=== PATIENT | male | born 1960 | race African-American/Black ===

== ENCOUNTER 2018-01-02 02:02 | Inpatient (IN) | END 2018-01-07 09:45 | disposition home or self-care (01) | DRG 392 ==

== ENCOUNTER 2018-07-12 05:00 | Emergency (ER) | payer OTHER ==
[~2018-07-12] VITALS: Ht 182.9 cm; Wt 118.2 kg
[~2018-07-12 05:00] MED LIST: ATEN-51 PO; ATEN50TA PO
[2018-07-12 05:04] VITALS: Ht 182.9 cm; Wt 118.2 kg
[2018-07-12 05:30] VITALS: RESP 22
[2018-07-12] MEDS ORDERED: FAMOTIDINE 20 MG INJ IV STA (06:10)
[2018-07-12] MEDS ORDERED: SOD CHLORIDE 0.9% 1,000 ML IV STA (06:10)
[2018-07-12] MEDS ORDERED: ONDANSETRON 4 MG INJ IV STA (06:10)
[2018-07-12] MEDS ORDERED: morphine 4 MG/ML VIAL IV STA ×2 (06:10→07:14)
[2018-07-12 06:44] VITALS: BP 148/86; PULSE 75
--- NOTE | 2018-07-12 06:49 | ERD ---
ER Documentation Chief Complaint Chief Complaint abdominal pain/diarrhea x 1 day, dc'd from [facility] yesterday HPI This is a 57-year-old male with a history of hypertension and diabetes who presents to the emergency room for evaluation of abdominal pain, generalized weakness, and diarrhea which he describes as nonbloody for the past 1 day. The patient states that he was discharged from [facility] yesterday. He s tates that he did leave AGAINST MEDICAL ADVICE because he had to take care of his mother. He localized the pain to the midportion of his abdomen and describes as sharp pain with mild radiation to the back. He denies any chest pain or shortness of breath associated with this. He denies any relieving factors and came to the ER for evaluation ROS All systems reviewed and are negative except as per history of present illness. Medications Home Meds Active Scripts Hydrocodone/Acetaminophen ([place] 5-325 Tablet) 1 Each Tablet, 1 TAB PO Q6H PRN for PAIN, #7 TAB Prov:FATUMA PHAN DO 07/12/18 Ranitidine Hcl* (Zantac*) 150 Mg Tablet, 150 MG PO BID PRN for EPIGASTRIC PAIN, #30 TAB Prov:FATUMA PHAN DO 07/12/18 Reported Medications Atenolol* (Atenolol*) 25 Mg Tablet, 75 MG PO QPM 01/02/18 Atenolol* (Atenolol*) 50 Mg Tablet, 50 MG PO QAM 01/02/18 Allergies Allergies: Coded Allergies: No Known Drug Allergies (Verified Allergy, Unknown, 07/06/15) PMhx/Soc History of Surgery: Yes (LEFT ANKLE SX, LEFT KNEE SX) Anesthesia Reaction: No Hx Neurological Disorder: Yes (NEUROPATHY) Hx Respiratory Disorders: No Hx Cardiac Disorders: Yes (HTN) Hx Psychiatric Problems: No Hx Miscellaneous Medical Probl: No Hx Alcohol Use: No Hx Substance Use: No Hx Tobacco Use: No Smoking Status: Never smoker Physical Exam Vitals Vital Signs Date Temp Pulse Resp B/P (MAP) Pulse Ox O2 O2 Flow FiO2 Time Delivery Rate 07/12/18 98.2 75 148/86 97 Room Air 06:44 (106) 07/12/18 99 22 154/83 97 Room Air 05:30 (106) 07/12/18 98.1 98 18 172/82 100 05:04 (112) Physical Exam INITIAL VITAL SIGNS: Reviewed by me GENERAL: The patient is well developed and appropriate for usual state of health in no apparent distress HEENT: Pupils equal, round, and reactive to light. EOMI. There is no scleral icterus. NECK: C-spine is soft and supple, there is no meningismus. There is no cervical lymphadenopathy. LUNGS: Clear to auscultation bilaterally. There are no rales, wheezes or rhonchi. HEART: Regular rate and rhythm, no murmurs, clicks, rubs or gallops. ABDOMEN: Epigastric tenderness to palpation, negative Navarro sign, otherwise soft, non-tender, non-distended. There are bowel sounds in all four quadrants. No rebound or guarding. EXTREMITIES: There is no peripheral cyanosis or edema. No focal swelling or erythema. NEUROLOGICAL: The patient moves all four extremities with 5/5 strength. Cranial nerves II - XII are intact. Normal gait. Alert and oriented SKIN: There is no apparent rash or petechiae. HEME/LYMPHATIC: There is no evidence of excessive bruising or lymphedema. PSYCHIATRIC: The patient does not appear anxious or depressed. Result Diagram: 07/12/18 0543 07/12/18 0543 Results 24 hrs Laboratory Tests Test 07/12/18 05:43 07/12/18 05:51 White Blood Count 12.5 10^3/ul Red Blood Count 4.73 10^6/ul Hemoglobin 14.6 g/dl Hematocrit 44.6 % Mean Corpuscular Volume 94.3 fl Mean Corpuscular Hemoglobin 30.9 pg Mean Corpuscular Hemoglobin Concent 32.7 g/dl Red Cell Distribution Width 13.0 % Platelet Count 249 10^3/UL Mean Platelet Volume 9.9 fl Immature Granulocytes % 0.400 % Neutrophils % 74.7 % Lymphocytes % 14.1 % Monocytes % 9.5 % Eosinophils % 0.2 % Basophils % 1.1 % Nucleated Red Blood Cells % 0.0 /100WBC Immature Granulocytes # 0.050 10^3/ul Neutrophils # 9.3 10^3/ul Lymphocytes # 1.8 10^3/ul Monocytes # 1.2 10^3/ul Eosinophils # 0.0 10^3/ul Basophils # 0.1 10^3/ul Nucleated Red Blood Cells # 0.0 10^3/ul Sodium Level 143 mmol/L Potassium Level 3.5 mmol/L Chloride Level 111 mmol/L Carbon Dioxide Level 25 mmol/L Anion Gap 7 Blood Urea Nitrogen 11 mg/dl Creatinine 0.94 mg/dl Est Glomerular Filtrat Rate mL/min > 60 mL/min Glucose Level 102 mg/dl Calcium Level 10.1 mg/dl Total Bilirubin 0.9 mg/dl Direct Bilirubin 0.00 mg/dl Indirect Bilirubin 0.9 mg/dl Aspartate Amino Transf (AST/SGOT) 29 IU/L Alanine Aminotransferase (ALT/SGPT) 20 IU/L Alkaline Phosphatase 70 IU/L Troponin I < 0.012 ng/ml Total Protein 7.5 g/dl Albumin 4.3 g/dl Globulin 3.20 g/dl Albumin/Globulin Ratio 1.34 Lipase 253 U/L Urine Color YELLOW Urine Clarity CLEAR Urine pH 6.0 Urine Specific [place] 1.030 Urine Ketones NEGATIVE mg/dL Urine Nitrite NEGATIVE mg/dL Urine Bilirubin NEGATIVE mg/dL Urine Urobilinogen NEGATIVE mg/dL Urine Leukocyte Esterase NEGATIVE Mario/ul Urine Hemoglobin NEGATIVE mg/dL Urine Glucose NEGATIVE mg/dL Urine Total Protein NEGATIVE mg/dl Current Medications Medications Dose Sig/Jaison Start Time Status Last (Trade) Ordered Route PRN Stop Time Admin Dose Reason Admin Sodium 1,000 ml @ Q1H STAT 07/12/18 DC 07/12/18 Chloride 1,000 mls/hr IV 06:10 06:26 07/12/18 07:09 Morphine 4 mg ONCE STAT 07/12/18 DC 07/12/18 Sulfate IV 06:10 06:25 (morphine) 07/12/18 06:12 Ondansetron 4 mg ONCE STAT 07/12/18 DC 07/12/18 HCl (Zofran IV 06:10 06:25 Inj) 07/12/18 06:12 Famotidine 20 mg ONCE STAT 07/12/18 DC 07/12/18 (Pepcid Iv) IV 06:10 06:25 07/12/18 06:12 Morphine 4 mg ONCE STAT 07/12/18 DC 07/12/18 Sulfate IV 07:14 07:35 (morphine) 07/12/18 07:15 Procedures/MDM This 57year-old male presents the ER for evaluation of abdominal pain. On my examination the patient had mild epigastric tenderness to palpation. He did state that his white blood cell count was elevated earlier this week at [facility]. On my exam the patient had mild epigastric tenderness to palpation however no significant rebound or guarding, no distention. Patient's lab work does demonstrate white blood cell count of 12.5. The patient was given IV fluids, Zofran and morphine. And on my reevaluation he states he is feeling much better. This patient could have a component of gastritis. I advised him he will need to follow-up as an outpatient for an endoscopy given his nonfocal examination and normal lab findings. The patient has no elevation in lipase. I doubt pancreatitis, and troponin is negative. He has no chest pain at this time and will be discharged home with a prescription for Jewett and Pepcid. Differ ential diagnoses entertained was broad with potential high acuity. Patient has been evaluated for appendicitis, cholecystitis, and other high risk medical and surgical causes of abdominal pain. Ultimately the patient's evaluation is nondiagnostic. Based on the patient's lack of risk factors, as well as the patient's clinical, laboratory, and imaging data, the patient appears to be low risk for these high risk causes of abdominal pain. Departure Diagnosis: Primary Impression: Abdominal pain Additional Impression: Essential (primary) hypertension Condition: FATUMA Rodriguez DO July 12, 2018 06:49
[2018-07-12] MEDS ORDERED: HYDR-4011 PO (08:18)
[2018-07-12] MEDS ORDERED: RANI150T35 PO (08:18)
== END 2018-07-12 09:11 | disposition home or self-care (01) ==
LOC: E/R 05:00
DX: R10.13 Epigastric pain (principal); I10 Essential (primary) hypertension; E11.9 Type 2 diabetes mellitus without complications
CPT/HCPCS: 36415; 80053; 81003; 83690; 84484; 85025; 96374; 96375; 96376; J2270; J2405; J7030; Z7502; Z7610

== ENCOUNTER 2018-07-19 00:33 | Inpatient (IN) | payer OTHER ==
[~2018-07-19] VITALS: Ht 182.9 cm; Wt 118.0 kg
[~2018-07-19 00:33] MED LIST changes: +HYDR-4011 PO; +RANI150T35 PO
[2018-07-19 00:39] VITALS: Ht 182.9 cm; Wt 118.0 kg
--- NOTE | 2018-07-19 04:02 | ERD ---
ER Documentation Chief Complaint Chief Complaint L cheek swelling, suspected insect bite ROS All systems reviewed and are negative except as per history of present illness. Medications Home Meds Active Scripts Hydrocodone/Acetaminophen ([place] 5-325 Tablet) 1 Each Tablet, 1 TAB PO Q6H PRN for PAIN, #7 TAB Prov:FATUMA PHAN DO 07/12/18 Ranitidine Hcl* (Zantac*) 150 Mg Tablet, 150 MG PO BID PRN for EPIGASTRIC PAIN, #30 TAB Prov:FATUMA PHAN DO 07/12/18 Reported Medications Atenolol* (Atenolol*) 25 Mg Tablet, 75 MG PO QPM 01/02/18 Atenolol* (Atenolol*) 50 Mg Tablet, 50 MG PO QAM 01/02/18 Allergies Allergies: Coded Allergies: No Known Drug Allergies (Verified Allergy, Unknown, 07/06/15) PMhx/Soc History of Surgery: Yes (LEFT ANKLE SX, LEFT KNEE SX) Anesthesia Reaction: No Hx Neurological Disorder: Yes (NEUROPATHY) Hx Respiratory Disorders: No Hx Cardiac Disorders: Yes (HTN) Hx Psychiatric Problems: No Hx Miscellaneous Medical Probl: No Hx Alcohol Use: No Hx Substance Use: No Hx Tobacco Use: No Physical Exam Vitals Vital Signs Date Temp Pulse Resp B/P (MAP) Pulse Ox O2 O2 Flow FiO2 Time Delivery Rate 07/19/18 99.4 110 18 171/77 97 00:39 (108) Physical Exam Const: No acute distress Head: Atraumatic Eyes: Normal Conjunctiva ENT: Normal External Ears, Nose and Mouth. Neck: Full range of motion. No meningismus. Resp: Clear to auscultation bilaterally Cardio: Regular rate and rhythm, no murmurs Abd: Soft, non tender, non distended. Normal bowel sounds Skin: No petechiae or rashes Back: No midline or flank tenderness Ext: No cyanosis, or edema Neur: Awake and alert Psych: Normal Mood and Affect Result Diagram: 07/19/1842007/19/18420 Results 24 hrs Laboratory Tests Test 07/19/18 04:21 07/19/18 05:18 White Blood Count 25.2 10^3/ul Red Blood Count 3.80 10^6/ul Hemoglobin 11.8 g/dl Hematocrit 36.4 % Mean Corpuscular Volume 95.8 fl Mean Corpuscular Hemoglobin 31.1 pg Mean Corpuscular Hemoglobin Concent 32.4 g/dl Red Cell Distribution Width 13.2 % Platelet Count 257 10^3/UL Mean Platelet Volume 10.1 fl Immature Granulocytes % 1.000 % Neutrophils % 78.6 % Lymphocytes % 8.1 % Monocytes % 11.3 % Eosinophils % 0.4 % Basophils % 0.6 % Nucleated Red Blood Cells % 0.0 /100WBC Immature Granulocytes # 0.240 10^3/ul Neutrophils # 19.8 10^3/ul Lymphocytes # 2.0 10^3/ul Monocytes # 2.8 10^3/ul Eosinophils # 0.1 10^3/ul Basophils # 0.1 10^3/ul Nucleated Red Blood Cells # 0.0 10^3/ul Sodium Level 144 mmol/L Potassium Level 3.8 mmol/L Chloride Level 106 mmol/L Carbon Dioxide Level 31 mmol/L Anion Gap 7 Blood Urea Nitrogen 8 mg/dl Creatinine 0.75 mg/dl Est Glomerular Filtrat Rate mL/min > 60 mL/min Glucose Level 108 mg/dl Calcium Level 9.1 mg/dl Total Bilirubin 0.5 mg/dl Direct Bilirubin 0.00 mg/dl Indirect Bilirubin 0.5 mg/dl Aspartate Amino Transf (AST/SGOT) 15 IU/L Alanine Aminotransferase (ALT/SGPT) 29 IU/L Alkaline Phosphatase 67 IU/L Total Protein 6.6 g/dl Albumin 3.6 g/dl Globulin 3.00 g/dl Albumin/Globulin Ratio 1.20 Urine Color STRAW Urine Clarity CLEAR Urine pH 6.0 Urine Specific [place] 1.030 Urine Ketones NEGATIVE mg/dL Urine Nitrite NEGATIVE mg/dL Urine Bilirubin NEGATIVE mg/dL Urine Urobilinogen NEGATIVE mg/dL Urine Leukocyte Esterase NEGATIVE Mario/ul Urine Hemoglobin NEGATIVE mg/dL Urine Glucose NEGATIVE mg/dL Urine Total Protein NEGATIVE mg/dl Lactic Acid Level 0.9 mmol/L Current Medications Medications Dose Sig/Jaison Start Time Status Last (Trade) Ordered Route PRN Stop Time Admin Dose Reason Admin Morphine 6 mg ONCE ONCE 07/19/18 DC 07/19/18 Sulfate IV 04:30 04:45 (morphine) 07/19/18 04:31 Ondansetron 4 mg ONCE STAT 07/19/18 DC 07/19/18 HCl (Zofran IV 04:05 04:45 Inj) 07/19/18 04:07 Piperacillin 100 ml @ ONCE ONCE 07/19/18 DC 07/19/18 Sod/ 200 mls/hr IVPB 05:30 05:51 Tazobactam 07/19/18 05:59 Sod IV Flush 10 ml STK-MED 07/19/18 DC 07/19/18 (NS 10 ml) ONCE .ROUTE 05:12 05:28 07/19/18 05:13 Sodium 100 ml @ ud STK-MED 07/19/18 DC 07/19/18 Chloride ONCE .ROUTE 05:12 05:28 07/19/18 05:13 Iohexol 150 ml STK-MED 07/19/18 DC 07/19/18 (Omnipaque ONCE .ROUTE 05:12 05:28 300mg/ ml) 07/19/18 05:13 BOGDAN HANKINS July 19, 2018 04:02
[2018-07-19] MEDS ORDERED: ONDANSETRON 4 MG INJ IV STA ×2 (04:05→09:31)
[2018-07-19] MEDS ORDERED: morphine 10 MG INJ IV ONE (04:30)
[2018-07-19] MEDS ORDERED: IOHEXOL 300MG/ML 150 ML BTL ONE (05:12)
[2018-07-19] MEDS ORDERED: SOD CHLORIDE 0.9% 100 ML ONE (05:12)
[2018-07-19] MEDS ORDERED: PIPER-TAZO 3.375 GM IV (PMX) 100 ML IVPB ONE (05:30)
[2018-07-19] MEDS ORDERED: HYDROmorphONE 2 MG/ML SYG IM STA (06:29)
[2018-07-19] MEDS ORDERED: HYDROmorphONE 2 MG/ML SYG IV STA (06:42)
[2018-07-19] MEDS ORDERED: DEXAMETHASONE 10 MG/ML 1 ML INJ IV ONE (07:00)
[2018-07-19] MEDS ORDERED: ACETAMINOPHEN 325 MG TAB PO PRN ×2 (09:30→13:30)
[2018-07-19] MEDS ORDERED: ONDANSETRON 4 MG INJ IV PRN ×2 (09:30→13:30)
[2018-07-19] MEDS ORDERED: HYDROmorphONE 1 MG/ML SYG IV STA (09:31)
--- NOTE | 2018-07-19 10:02 | ERD ---
ER Documentation Chief Complaint Chief Complaint L cheek swelling, suspected insect bite HPI This is a 57-year-old male with a past medical history of hypertension. The patient indicates that 3 days prior to arrival he awoke and noticed mild swelling to his left cheek. He said he thought he was bit by an insect bite as there was surrounding pruritus of the skin and redness. Over the past several days the swelling has increased. When he awoke this morning he noticed a significant worsening of the swelling and also noticed some pustular drainage coming from the left cheek swelling. He denies any difficulty breathing. He s aid no fevers or shaking or chills. He denies any chest pain. He denies any toothache. He states he is never had any similar symptoms in the past. He had no fevers no shaking no chills. ROS All systems reviewed and are negative except as per history of present illness. Medications Home Meds Active Scripts Hydrocodone/Acetaminophen ([place] 5-325 Tablet) 1 Each Tablet, 1 TAB PO Q6H PRN for PAIN, #7 TAB Prov:FATUMA PHAN DO 07/12/18 Ranitidine Hcl* (Zantac*) 150 Mg Tablet, 150 MG PO BID PRN for EPIGASTRIC PAIN, #30 TAB Prov:FATUMA PHAN DO 07/12/18 Reported Medications Atenolol* (Atenolol*) 25 Mg Tablet, 75 MG PO QPM 01/02/18 Atenolol* (Atenolol*) 50 Mg Tablet, 50 MG PO QAM 01/02/18 Allergies Allergies: Coded Allergies: No Known Drug Allergies (Verified Allergy, Unknown, 07/06/15) PMhx/Soc History of Surgery: Yes (LEFT ANKLE SX, LEFT KNEE SX) Anesthesia Reaction: No Hx Neurological Disorder: Yes (NEUROPATHY) Hx Respiratory Disorders: No Hx Cardiac Disorders: Yes (HTN) Hx Psychiatric Problems: No Hx Miscellaneous Medical Probl: No Hx Alcohol Use: No Hx Substance Use: No Hx Tobacco Use: No Physical Exam Vitals Vital Signs Date Temp Pulse Resp B/P (MAP) Pulse Ox O2 O2 Flow FiO2 Time Delivery Rate 07/19/18 98.1 88 16 167/84 96 Room Air 12:15 (111) 07/19/18 99.8 93 18 146/76 96 Room Air 06:50 (99) 07/19/18 99.4 110 18 171/77 97 00:39 (108) Physical Exam Constitutional:Well-developed. Well-nourished. HEENT:Normocephalic. Atraumatic.Pupils were equal round reactive to light. Moist mucous membranes.No tonsillar exudates. Soft tissue swelling of the left cheek. Purulent drainage with gentle pressure over the angle of the left mandible surrounding fluctuance and induration and induration measuring roughly 4 cm x 3 cm.. Left cheek was erythematous warm to the touch with significant tenderness. Pain not out of proportion to physical exam and no subcutaneous emphysema. No trismus. No brawny induration. Soft tissue swelling extended to the left side of the neck. Neck: No nuchal rigidity. No lymphadenopathy. No posterior cervical spine tenderness or step-offs. Respiratory: Not using accessory muscles of respiration.Lungs were clear to auscultation bilaterally. No rhonchi. No rales. No wheezing. No stridor. Cardiovascular: Regular rate regular rhythm.No murmurs. No rubs were appreciated.S1, S2 normal. Distal pulses are palpable 2+ bilaterally. GI: Abdomen was soft. Nontender. Non Distended. No pulsatile abdominal masses or bruits. No rebound. No guarding. Bowel sounds were present and normal. Muscle skeletal: Full range of motion of both the upper and lower extremities bilaterally.Normal muscle tone.No assymetrical calf tenderness or swelling. Skin: No petechia, no purpura. No lesions on the palms or the soles of the feet. No maculopapular rash. NEURO: Patient was alert, awake, orientated x3.No facial droop. Gait observed and normal with no ataxia.Speech had regular rate and rhythm. No focal neurological deficits. Result Diagram: 07/19/1842007/19/18 042 Results 24 hrs Laboratory Tests Test 07/19/18 04:21 07/19/18 05:18 White Blood Count 25.2 10^3/ul Red Blood Count 3.80 10^6/ul Hemoglobin 11.8 g/dl Hematocrit 36.4 % Mean Corpuscular Volume 95.8 fl Mean Corpuscular Hemoglobin 31.1 pg Mean Corpuscular Hemoglobin Concent 32.4 g/dl Red Cell Distribution Width 13.2 % Platelet Count 257 10^3/UL Mean Platelet Volume 10.1 fl Immature Granulocytes % 1.000 % Neutrophils % 78.6 % Lymphocytes % 8.1 % Monocytes % 11.3 % Eosinophils % 0.4 % Basophils % 0.6 % Nucleated Red Blood Cells % 0.0 /100WBC Immature Granulocytes # 0.240 10^3/ul Neutrophils # 19.8 10^3/ul Lymphocytes # 2.0 10^3/ul Monocytes # 2.8 10^3/ul Eosinophils # 0.1 10^3/ul Basophils # 0.1 10^3/ul Nucleated Red Blood Cells # 0.0 10^3/ul Sodium Level 144 mmol/L Potassium Level 3.8 mmol/L Chloride Level 106 mmol/L Carbon Dioxide Level 31 mmol/L Anion Gap 7 Blood Urea Nitrogen 8 mg/dl Creatinine 0.75 mg/dl Est Glomerular Filtrat Rate mL/min > 60 mL/min Glucose Level 108 mg/dl Calcium Level 9.1 mg/dl Total Bilirubin 0.5 mg/dl Direct Bilirubin 0.00 mg/dl Indirect Bilirubin 0.5 mg/dl Aspartate Amino Transf (AST/SGOT) 15 IU/L Alanine Aminotransferase (ALT/SGPT) 29 IU/L Alkaline Phosphatase 67 IU/L Total Protein 6.6 g/dl Albumin 3.6 g/dl Globulin 3.00 g/dl Albumin/Globulin Ratio 1.20 Urine Color STRAW Urine Clarity CLEAR Urine pH 6.0 Urine Specific [place] 1.030 Urine Ketones NEGATIVE mg/dL Urine Nitrite NEGATIVE mg/dL Urine Bilirubin NEGATIVE mg/dL Urine Urobilinogen NEGATIVE mg/dL Urine Leukocyte Esterase NEGATIVE Mario/ul Urine Hemoglobin NEGATIVE mg/dL Urine Glucose NEGATIVE mg/dL Urine Total Protein NEGATIVE mg/dl Lactic Acid Level 0.9 mmol/L Current Medications Medications Dose Sig/Jaison Start Time Status Last (Trade) Ordered Route PRN Stop Time Admin Dose Reason Admin Morphine 6 mg ONCE ONCE 07/19/18 DC 07/19/18 Sulfate IV 04:30 04:45 (morphine) 07/19/18 04:31 Ondansetron 4 mg ONCE STAT 07/19/18 DC 07/19/18 HCl (Zofran IV 04:05 04:45 Inj) 07/19/18 04:07 Piperacillin 100 ml @ ONCE ONCE 07/19/18 DC 07/19/18 Sod/ 200 mls/hr IVPB 05:30 05:51 Tazobactam 07/19/18 05:59 Sod IV Flush 10 ml STK-MED 07/19/18 DC 07/19/18 (NS 10 ml) ONCE .ROUTE 05:12 05:28 07/19/18 05:13 Sodium 100 ml @ ud STK-MED 07/19/18 DC 07/19/18 Chloride ONCE .ROUTE 05:12 05:28 07/19/18 05:13 Iohexol 150 ml STK-MED 07/19/18 DC 07/19/18 (Omnipaque ONCE .ROUTE 05:12 05:28 300mg/ ml) 07/19/18 05:13 1 mg ONCE STAT 07/19/18 DC Hydromorphone IM 06:29 HCl 07/19/18 06:43 (Dilaudid) 1 mg ONCE STAT 07/19/18 DC 07/19/18 Hydromorphone IV 06:42 06:44 HCl 07/19/18 06:43 (Dilaudid) 10 mg ONCE ONCE 07/19/18 DC 07/19/18 Dexamethasone IV 07:00 06:51 (Decadron) 07/19/18 07:01 Ondansetron 4 mg BRIDGE ORDER 07/19/18 HCl (Zofran PRN IV 09:30 Inj) NAUSEA/VOMITI 07/20/18 09:29 NG 650 mg ER BRIDGE 07/19/18 Acetaminophen PRN PO 09:30 (Tylenol .MILD PAIN 07/20/18 09:29 Tab) 1-3 OR TEMP 1 mg ONCE STAT 07/19/18 DC 07/19/18 Hydromorphone IV 09:31 09:40 HCl 07/19/18 09:32 (Dilaudid) Ondansetron 4 mg ONCE STAT 07/19/18 DC 07/19/18 HCl (Zofran IV 09:31 09:40 Inj) 07/19/18 09:32 Morphine 2 mg ONCE STAT 07/19/18 DC 07/19/18 Sulfate IV 12:56 13:18 (morphine) 07/19/18 13:02 Sodium 1,000 ml @ Q10H IV 07/19/18 07/19/18 Chloride 100 mls/hr 13:13 14:07 07/20/18 09:12 IV Flush 3 ml PER 07/19/18 (NS 3 ml) PROTOCOL IV 13:30 Ondansetron 4 mg Q6H PRN 07/19/18 HCl (Zofran IV 13:30 Inj) NAUSEA/VOMITI NG 650 mg Q6H PRN 07/19/18 Acetaminophen PO .PAIN 1-3 13:30 (Tylenol OR TEMP Tab) 1 tab Q6H PRN 07/19/18 Acetaminophen PO .MOD PAIN 13:30 / 4-6 Hydrocodone Bitart ([place] (5/325)) Morphine 2 mg Q4H PRN 07/19/18 Sulfate IV .SEVERE 13:30 (morphine) PAIN 7-10 Docusate 100 mg Q12H PRN 07/19/18 Sodium PO 13:30 (Colace) .CONSTIPATION Zolpidem 5 mg QHS PRN 07/19/18 Tartrate PO .INSOMNIA 13:30 (Ambien) Ampicillin 100 ml @ Q6 IVPB 07/19/18 UNV Sodium/ 100 mls/hr 18:00 Sulbactam Sodium 1 mg Q6H PRN 07/19/18 Hydromorphone IV 13:30 HCl BREAKTHROUGH (Dilaudid) PAIN Atenolol 75 mg QPM PO 07/19/18 (Tenormin) 21:00 Atenolol 50 mg QAM PO 07/20/18 (Tenormin) 09:00 Procedures/MDM The patient presented to the emergency department with a spreading erythematous superficial infection of the skin and subcutaneous tissues. My differential diagnosis included but was not limited to necrotizing fasciitis, lymphangitis, thrombophlebitis, deep vein thrombosis, allergic reaction, neoplasm, gout or abscess. Predisposing factors of the progressive spread of erythema, warmth, pain and tenderness was considered such as lymphedema, tinea pedis, open wounds, prior trauma or surgery, pre-existing skin lesion (furuncle), retained foreign body, injection drug use or vascular or immune compromise. The patient was placed on antibiotics to cover Staphylococcus aureus, including resistant strains such as community-acquired methicillin-resistant S. aureus. The patient was given intravenous Zosyn. Blood cultures were obtained prior to receiving the antibiotics. I did obtain a CT scan of the patient's neck with intravenous contrast. This was reviewed by the radiologist and indicate the followin. Diffuse left and to a lesser extent right neck and facial cellulitis without discrete abscess or drainable fluid collection. 2. Heterogeneously enhancing superficial left parotid gland secondary to either parotiditis or reactive inflammatory changes. 3. Enlarged reactive level I a and left level II a lymph nodes. 4. Mild to moderate disc height loss C5-C6. Procedure note: The patient received lidocaine to anesthetize the area. A needle aspiration was performed. There is a significant amount of purulent drainage that was removed from the overlying localized abscess. However the patient still had a significant amount of soft tissue swelling with concern for facial cellulitis. Therefore I did feel the patient required admission for attenuation of IV antibiotics. There is no airway compromization or signs of Alex's angina. The patient did receive Decadron to help improve with the swelling. The patient will be admitted to the hospitalist. Patient will be admitted for observation to the medical surgical floor. Departure Diagnosis: Primary Impression: Facial cellulitis Additional Impressions: Facial abscess Parotiditis Condition: Serious SHAYNE COVARRUBIAS MD July 19, 2018 09:58
[2018-07-19] MEDS ORDERED: morphine 2 MG INJ IV STA (12:56)
--- NOTE | 2018-07-19 13:27 | HP ---
Date/Time of Note Date/Time of Note DATE: 07/19/18 TIME: 13:14 Assessment/Plan VTE Prophylaxis SCD applied (from Nsg): Yes Pharmacological prophylaxis: NA/contraindicated Pharm contraindication: low risk/ambulating Lines/Catheters IV Catheter Type (from Nrsg): Saline Lock Assessment/Plan Hospital Course 1. Sepsis with leukocytosis and tachycardia secondary to facial cellulitis likely from folliculitis and/or parotiditis Patient status post I&D in the ER CT of the neck shows bilateral neck and facial cellulitis without discrete abscess as well as possible parotiditis Unasyn IV 2. History of adrenal mass Patient was noted to have this mass in [address], work-up was initiated at that time, cortisol level and free metanephrine are slightly elevated, aldosterone is normal and renal is low Endocrinology consultation obtained 3. Chronic leukocytosis Patient with persistent leukocytosis, may be related to chronic cortisol elevation Endocrinology consultation 4. Hypertension Continue home atenolol Prophylaxis: SCDs Result Diagram: 07/19/18 0421 07/19/18 0421 Results 24hrs Laboratory Tests Test 07/19/18 04:21 07/19/18 05:18 White Blood Count 25.2 #H Red Blood Count 3.80 L Hemoglobin 11.8 L Hematocrit 36.4 L Mean Corpuscular Volume 95.8 Mean Corpuscular Hemoglobin 31.1 Mean Corpuscular Hemoglobin Concent 32.4 Red Cell Distribution Width 13.2 Platelet Count 257 Mean Platelet Volume 10.1 Immature Granulocytes % 1.000 H Neutrophils % 78.6 H Lymphocytes % 8.1 L Monocytes % 11.3 H Eosinophils % 0.4 Basophils % 0.6 Nucleated Red Blood Cells % 0.0 Immature Granulocytes # 0.240 H Neutrophils # 19.8 H Lymphocytes # 2.0 Monocytes # 2.8 H Eosinophils # 0.1 Basophils # 0.1 Nucleated Red Blood Cells # 0.0 Sodium Level 144 Potassium Level 3.8 Chloride Level 106 Carbon Dioxide Level 31 Anion Gap 7 Blood Urea Nitrogen 8 Creatinine 0.75 Est Glomerular Filtrat Rate mL/min > 60 Glucose Level 108 Calcium Level 9.1 Total Bilirubin 0.5 Direct Bilirubin 0.00 Indirect Bilirubin 0.5 Aspartate Amino Transf (AST/SGOT) 15 Alanine Aminotransferase (ALT/SGPT) 29 Alkaline Phosphatase 67 Total Protein 6.6 Albumin 3.6 Globulin 3.00 Albumin/Globulin Ratio 1.20 Urine Color STRAW Urine Clarity CLEAR Urine pH 6.0 Urine Specific [place] 1.030 Urine Ketones NEGATIVE Urine Nitrite NEGATIVE Urine Bilirubin NEGATIVE Urine Urobilinogen NEGATIVE Urine Leukocyte Esterase NEGATIVE Urine Hemoglobin NEGATIVE Urine Glucose NEGATIVE Urine Total Protein NEGATIVE Lactic Acid Level 0.9 HPI/ROS Admit Date/Time Admit Date/Time July 19, 2018 Hx of Present Illness Patient is a 57-year-old male with history of small adrenal mass, diverticulosis hypertension and BPH. Patient presents with pain and swelling in his neck and CT of his neck showed left and right neck and facial cellulitis without discrete abscess or drainable fluid collection as well as possible parotiditis. Patient did have some superficial abscess drained in the ER, patient has no other complaints at this time. ROS Constitutional: no complaints, improved Eyes: no complaints ENT: no complaints Respiratory: no complaints Cardiovascular: no complaints Gastrointestinal: no complaints Genitourinary: no complaints Musculoskeletal: no complaints Skin: skin lesions Neurologic: no complaints Endocrine: no complaints Lymphatic: no complaints Psychological: no complaints, nl mood/affect Immunologic: no complaints PMH/Family/Social Past Medical History As per HPI Medications Current Medications Ondansetron HCl (Zofran Inj) 4 mg BRIDGE ORDER PRN IV NAUSEA/VOMITING; Start 07/19/18 at 09:30; Stop 07/20/18 at 09:29 Acetaminophen (Tylenol Tab) 650 mg ER BRIDGE PRN PO .MILD PAIN 1-3 OR TEMP; Start 07/19/18 at 09:30; Stop 07/20/18 at 09:29 Coded Allergies: No Known Drug Allergies (Verified Allergy, Unknown, 07/06/15) Past Surgical History Past Surgical Hx: no surgical history, other Family History Significant Family History: cancer, lung disease Social History Alcohol Use: rarely Smoking Status: Never smoker Drug Use: none Exam/Review of Systems Vital Signs Vitals Vital Signs Date Temp Pulse Resp B/P (MAP) Pulse Ox O2 O2 Flow FiO2 Time Delivery Rate 07/19/18 98.1 88 16 167/84 96 Room Air 12:15 (111) Exam Constitutional: alert, oriented Neck: other (Swelling) Respiratory: clear to auscultation Cardiovascular: regular rate and rhythm Gastrointestinal: soft; No distended Musculoskeletal: nl extremities to inspection MAKAYLA BURROWS July 19, 2018 13:25
[2018-07-19] MEDS ORDERED: NACL 0.9% 3 ML SYG IV SCH (13:30)
[2018-07-19] MEDS ORDERED: DOCUSATE SODIUM 100 MG CAP PO PRN (13:30)
[2018-07-19] MEDS ORDERED: HYDROCODONE/APAP (5/325) TAB PO PRN (13:30)
[2018-07-19] MEDS ORDERED: ZOLPIDEM 5 MG TAB PO PRN (13:30)
[2018-07-19] MEDS: SOD CHLORIDE 0.9% 1,000 ML IV SCH ×2 (14:07→23:13)
[2018-07-19 15:27] VITALS: BP 162/70; PULSE 77; RESP 21
[2018-07-19] MEDS: AMPICILLIN/SULB 3 GM/NS (PMX) 100 ML IVPB SCH (17:52)
[2018-07-19] MEDS: morphine 2 MG INJ IV PRN (18:26)
[2018-07-19 20:00] VITALS: BP 155/72; PULSE 87; RESP 19
[2018-07-19] MEDS: HYDROmorphONE 1 MG/ML SYG IV PRN (20:07)
[2018-07-19] MEDS ORDERED: ATENOLOL 25 MG TAB PO SCH (21:00)
[2018-07-20] MEDS: AMPICILLIN/SULB 3 GM/NS (PMX) 100 ML IVPB SCH ×4 (00:10→17:09)
[2018-07-20] MEDS: morphine 2 MG INJ IV PRN ×3 (01:19→12:28)
[2018-07-20 02:00] VITALS: BP 146/63; PULSE 68; RESP 19
[2018-07-20] MEDS: SOD CHLORIDE 0.9% 1,000 ML IV SCH (06:03)
[2018-07-20 07:49] VITALS: BP 129/67; PULSE 74; RESP 18
[2018-07-20] MEDS ORDERED: ATENOLOL 50 MG TAB PO SCH (09:00)
--- NOTE | 2018-07-20 12:31 | CONS ---
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 Hormone secreting versus non functional. Although there has been some increased growth does not meet criteria for malignancy at this time. December work up showed an elevated urine cortisol but normal PAC/PRC and fractionated urine metanephrines ruling out hyperaldosteronism and pheochromocytoma. Given the initial work up was over 6 months ago will need to repeat 24 hour urine collection for cortisol. If serum and urine cortisol remain elevated I would do suppression test. Assessment/Plan (Daily) Order serum cortisol and 24 hour urine cortisol. Consultation Date/Type/Reason Admit Date/Time July 19, 2018 Date of Consultation: July 20, 2018 Type of Consult Endocrine Reason for Consultation Adrenal Adenoma Requesting Provider: MAKAYLA BURROWS Date/Time of Note DATE: 07/20/18 TIME: 12:24 Thank you for asking me to participate in this patient's care. Hx of Present Illness 57 year old man that presents to [facility] here at [facility] with a facial cellulitis. Has a history that dates back to 2014 of a 1.9 cm adrenal tumor. December of 2017 repeat imaging shows slight increase in size of the adrenal adenoma up to 2.3 cm. Work up of the tumor at that time included a 24 hour urine cortisol that was elevated, 24 hour urine fractionated metanephrine that was within normal range and an aldosterone renin ratio of 10. Patient states he had repeat CT of abdomen last week at [facility] and has follow up with his PMD on July 29. I've been asked to evaluate patient. Left sided facial swelling Constitutional: no complaints Eyes: no complaints ENT: no complaints Respiratory: no complaints Cardiovascular: no complaints Gastrointestinal: no complaints Genitourinary: no complaints Musculoskeletal: no complaints Skin: no complaints Neurologic: no complaints Endocrine: no complaints, other Lymphatic: no complaints, other Psychological: no complaints Immunologic: no complaints Past Medical History Medical History: hypertension, other (adrenal mass) Home Meds Active Scripts Hydrocodone/Acetaminophen ([place] 5-325 Tablet) 1 Each Tablet, 1 TAB PO Q6H PRN for PAIN, #7 TAB Prov:FATUMA PHAN DO 07/12/18 Ranitidine Hcl* (Zantac*) 150 Mg Tablet, 150 MG PO BID PRN for EPIGASTRIC PAIN, #30 TAB Prov:FATUMA PHAN DO 07/12/18 Reported Medications Atenolol* (Atenolol*) 25 Mg Tablet, 75 MG PO QPM 01/02/18 Atenolol* (Atenolol*) 50 Mg Tablet, 50 MG PO QAM 01/02/18 Medications Current Medications IV Flush (NS 3 ml) 3 ml PER PROTOCOL IV ; Start 07/19/18 at 13:30 Ondansetron HCl (Zofran Inj) 4 mg Q6H PRN IV NAUSEA/VOMITING; Start 07/19/18 at 13:30 Acetaminophen (Tylenol Tab) 650 mg Q6H PRN PO .PAIN 1-3 OR TEMP; Start 07/19/18 at 13:30 Acetaminophen/ Hydrocodone Bitart ([place] (5/325)) 1 tab Q6H PRN PO .MOD PAIN 4- 6 Last administered on 07/19/18at 15:19; Admin Dose 1 TAB; Start 07/19/18 at 13:30 Morphine Sulfate (morphine) 2 mg Q4H PRN IV .SEVERE PAIN 7-10 Last administered on 07/20/18at 08:17; Admin Dose 2 MG; Start 07/19/18 at 13:30 Docusate Sodium (Colace) 100 mg Q12H PRN PO .CONSTIPATION; Start 07/19/18 at 13:30 Zolpidem Tartrate (Ambien) 5 mg QHS PRN PO .INSOMNIA; Start 07/19/18 at 13:30 Ampicillin Sodium/ Sulbactam Sodium 100 ml @ 100 mls/hr Q6 IVPB Last administered on 07/20/18at 05:54; Admin Dose 100 MLS/HR; Start 07/19/18 at 18:00 Hydromorphone HCl (Dilaudid) 1 mg Q6H PRN IV BREAKTHROUGH PAIN Last administered on 07/19/18at 20:07; Admin Dose 1 MG; Start 07/19/18 at 13:30 Atenolol (Tenormin) 75 mg QPM PO Last administered on 07/19/18at 20:17; Admin Dose 75 MG; Start 07/19/18 at 21:00 Atenolol (Tenormin) 50 mg QAM PO Last administered on 07/20/18at 08:22; Admin Dose 50 MG; Start 07/20/18 at 09:00 Allergies: Coded Allergies: No Known Drug Allergies (Verified Allergy, Unknown, 07/06/15) Past Surgical History Past Surgical Hx: no surgical history (ankle and ACL repair), other Family History Significant Family History: cancer (father had colon) Social History Alcohol Use: sober Smoking Status: Never smoker Drug Use: none Exam/Review of Systems Exam Vitals Vital Signs Date Temp Pulse Resp B/P (MAP) Pulse Ox O2 O2 Flow FiO2 Time Delivery Rate 07/20/18 97.9 74 18 129/67 96 07:49 (87) 07/20/18 Room Air 02:00 Intake and Output 07/19/18 07/19/18 07/20/18 1515:00 23:00 07:00 IntakeIntake Total 490 ml 1050 ml BalanceBalance 490 ml 1050 ml Constitutional: alert, oriented, well developed Psych: no complaints Head: normocephalic, other (left maxillary and mandibulat soft tissue swelling noted extending into the neck) Neck: supple Respiratory: clear to auscultation Cardiovascular: regular rate and rhythm Gastrointestinal: soft Musculoskeletal: nl extremities to inspection Extremities: normal pulses Skin: nl turgor Results Result Diagram: 07/20/18 0433 07/20/18 0433 Results 24hrs Laboratory Tests Test 07/20/18 04:33 White Blood Count 34.6 #H Red Blood Count 3.78 L Hemoglobin 11.7 L Hematocrit 35.4 L Mean Corpuscular Volume 93.7 Mean Corpuscular Hemoglobin 31.0 Mean Corpuscular Hemoglobin Concent 33.1 Red Cell Distribution Width 12.8 Platelet Count 292 Mean Platelet Volume 10.3 Immature Granulocytes % 1.800 H Neutrophils % Segmented Neutrophils % (Manual) 78 H Band Neutrophils % (Manual) 12 H Lymphocytes % Lymphocytes % (Manual) 1 L Reactive Lymphocytes % (Manual) 1 H Monocytes % Monocytes % (Manual) 8 Eosinophils % Basophils % Nucleated Red Blood Cells % 0.0 Immature Granulocytes # 0.630 H Neutrophils # Neutrophils # (Manual) 28.4 H Band Neutrophils # 4.1 H Lymphocytes (Manual) 0.3 L Lymphocytes # Reactive Lymphocytes # 0.3 H Monocytes # Monocytes # (Manual) 2.7 H Eosinophils # Basophils # Nucleated Red Blood Cells # Platelet Estimate NORMAL Sodium Level 142 Potassium Level 3.9 Chloride Level 106 Carbon Dioxide Level 30 Anion Gap 6 Blood Urea Nitrogen 10 Creatinine 0.63 Est Glomerular Filtrat Rate mL/min > 60 Glucose Level 132 Hemoglobin A1c 5.6 Calcium Level 9.2 Phosphorus Level 2.9 Magnesium Level 2.1 Free Thyroxine Index 2.06 Thyroxine (T4) 5.2 L Triiodothyronine (T3) Uptake 39.6 Medications Medication Current Medications IV Flush (NS 3 ml) 3 ml PER PROTOCOL IV ; Start 07/19/18 at 13:30 Ondansetron HCl (Zofran Inj) 4 mg Q6H PRN IV NAUSEA/VOMITING; Start 07/19/18 at 13:30 Acetaminophen (Tylenol Tab) 650 mg Q6H PRN PO .PAIN 1-3 OR TEMP; Start 07/19/18 at 13:30 Acetaminophen/ Hydrocodone Bitart ([place] (5/325)) 1 tab Q6H PRN PO .MOD PAIN 4- 6 Last administered on 07/19/18at 15:19; Admin Dose 1 TAB; Start 07/19/18 at 1 3:30 Morphine Sulfate (morphine) 2 mg Q4H PRN IV .SEVERE PAIN 7-10 Last administered on 07/20/18at 08:17; Admin Dose 2 MG; Start 07/19/18 at 13:30 Docusate Sodium (Colace) 100 mg Q12H PRN PO .CONSTIPATION; Start 07/19/18 at 13:30 Zolpidem Tartrate (Ambien) 5 mg QHS PRN PO .INSOMNIA; Start 07/19/18 at 13:30 Ampicillin Sodium/ Sulbactam Sodium 100 ml @ 100 mls/hr Q6 IVPB Last administered on 07/20/18at 05:54; Admin Dose 100 MLS/HR; Start 07/19/18 at 18:00 Hydromorphone HCl (Dilaudid) 1 mg Q6H PRN IV BREAKTHROUGH PAIN Last administered on 07/19/18at 20:07; Admin Dose 1 MG; Start 07/19/18 at 13:30 Atenolol (Tenormin) 75 mg QPM PO Last administered on 07/19/18at 20:17; Admin Dose 75 MG; Start 07/19/18 at 21:00 Atenolol (Tenormin) 50 mg QAM PO Last administered on 07/20/18at 08:22; Admin Dose 50 MG; Start 5/26/19 at 09:00 CARLOS GATICA MD July 20, 2018 12:31
[2018-07-20 12:59] VITALS: BP 132/68; PULSE 74; RESP 18
[2018-07-20] MEDS: HYDROmorphONE 1 MG/ML SYG IV PRN (15:04)
[2018-07-20] MEDS ORDERED: AMOX1TAB10 PO (15:50)
--- NOTE | 2018-07-20 15:51 | PDOCDIS ---
Discharge Instructions CONDITION [id number] Patient Condition: [id number] Good HOME CARE INSTRUCTIONS: [id number] Diet Instructions: [id number] Regular ACTIVITY: [id number] Activity Restrictions: [id number] No Restrictions FOLLOW UP/APPOINTMENTS Follow-up Plan FOLLOW UP WITH YOUR PCP IN 1-2 WEEKS AND AN OCEAN EXPORT ACCOUNT MANAGER FOR WORK UP OF ADRENAL ADENOMA MAKAYLA BURROWS July 20, 2018 15:51
--- NOTE | 2018-07-20 16:56 | DS ---
Date/Time of Note Date/Time of Note DATE: 07/20/18 TIME: 16:49 Discharge Summary Admission/Discharge Info Admit Date/Time July 19, 2018 Discharge Date/Time July 20, 2018 Discharge Diagnosis 1. Sepsis with leukocytosis and tachycardia secondary to facial cellulitis likely from folliculitis and/or parotiditis Patient status post I&D in the ER CT of the neck shows bilateral neck and facial cellulitis without discrete abscess as well as possible parotiditis Status post Unasyn IV DC with Augmentin 2. History of adrenal mass Patient was noted to have this mass in [address], work-up was initiated at that time, cortisol level and free metanephrine are slightly elevated, aldosterone is normal and renal is low Endocrinology consultation appreciated, based on labs drawn in 2018 patient had elevated urine cortisol but normal PAC/PRC and fractionated urine metanephrines ruling out hyperaldosteronism and pheochromocytoma Endocrine recommended 24-hour urine cortisol but patient did not want to wait and prefers to have it done as an outpatient 3. Chronic leukocytosis Patient with persistent leukocytosis, may be related to chronic cortisol elevation Endocrinology consultation appreciated 4. Hypertension Continue home atenolol Patient Condition: Good Hospital Course Patient is a 57-year-old male with history of adrenal mass, diverticulosis hypertension and BPH. Patient presents with pain and swelling in his neck and CT of his neck showed left and right neck and facial cellulitis without discrete abscess or drainable fluid collection as well as possible parotiditis. Patient did have some superficial abscess drained in the ER, patient received Unasyn IV with improvement of his cellulitis. Patient did have an admission in 2018 and at that time CT abdomen showed an adrenal mass, patient did have an initial work-up that was pending at the time of discharge. Based on review of labs drawn in 2018 patient had elevated urine cortisol but normal PAC/PRC and fractionated urine metanephrines ruling out hyperaldosteronism and pheochromocytoma. Patient does have chronic leukocytosis based on prior lab values. Endocrinology consultation was obtained and recommendation was for 24- hour urine cortisol but patient requested to be discharged as he had to take care of his mother, patient stated that he will have an outpatient work-up to further evaluate the mass. Patient understands risk of not having 24-hour urine cortisol evaluation during his hospitalization but still prefers to be discharged, in addition patient is very adamant that he will seek an outpatient work-up. Patient was stable for DC, on the day of discharge patient's vitals, labs of exam are stable. Home Meds Active Scripts Amoxicillin/Potassium Clav (Amox-Clav 875-125 mg Tablet) 875-125 mg Tab, 1 TAB PO BID for 7 Days, #14 TAB Prov:MAKAYLA BURROWS 07/20/18 Hydrocodone/Acetaminophen ([place] 5-325 Tablet) 1 Each Tablet, 1 TAB PO Q6H PRN for PAIN, #7 TAB Prov:FATUMA PHAN DO 07/12/18 Ranitidine Hcl* (Zantac*) 150 Mg Tablet, 150 MG PO BID PRN for EPIGASTRIC PAIN, #30 TAB Prov:FATUMA PHAN DO 07/12/18 Reported Medications Atenolol* (Atenolol*) 25 Mg Tablet, 75 MG PO QPM 01/02/18 Atenolol* (Atenolol*) 50 Mg Tablet, 50 MG PO QAM 01/02/18 Follow-up Plan FOLLOW UP WITH YOUR PCP IN 1-2 WEEKS AND AN LOG INSPECTOR FOR WORK UP OF ADRENAL ADENOMA Primary Care Provider Not On Staff Doctor Time spent on discharge: > 30 minutes MAKAYLA BURROWS July 20, 2018 16:56
== END 2018-07-20 17:36 | disposition home or self-care (01) | DRG 872 ==
LOC: E/R 00:33 → EDUNIT# 00:33 → 2NE 09:28 → OBSVTOIN 07-20 08:56
PROVIDERS: ADMIT Internal Medicine; ATTEND Internal Medicine
DX: A41.9 Sepsis, unspecified organism (principal); L03.211 Cellulitis of face; D72.829 Elevated white blood cell count, unspecified; I10 Essential (primary) hypertension; D35.00 Benign neoplasm of unspecified adrenal gland
CPT/HCPCS: 70486; 70491; 71046; 80048; 80053; 81003; 83036; 83605; 83735; 84100; 84436; 84479; 85025; 87086; 96374; 96375; G0378; J0295; J1100; J1170; J2270; J2405; J2543; J7030; Q9967